=== PATIENT | male | born 1995 | race Caucasian/White ===

== ENCOUNTER 2017-07-02 | Emergency (ER) | payer OTHER ==
[2017-07-02 01:12] LABS: COLOR PALE YELLOW; LEUKOCYTE ESTERASE,URINE NEGATIVE (NEGATIVE); NITRITE,URINE NEGATIVE (NEGATIVE)
--- NOTE | 2017-07-02 02:11 | EDPHY ---
H & P Stated Complaint: says fell yesterday skateboarding on L lower back, urinating blood Time Seen by Provider: 07/02/17 00:23 HPI/ROS: Chief Complaint: Back pain HPI: 22-year-old male fell off his skateboard yesterday, landing on his back on a hand rail. Patient has been having pain in his left back since. This morning he is urine was very dark. He has had persistent pain since. No abdominal pain. No nausea or vomiting. No chest pain or shortness of breath. He did not his head. He had no loss of consciousness. Has not been taking any medication. ROS: 10 point Review of Systems is negative except as noted in the HPI. PMH: None Social History: Occasional smoking, occasional alcohol, occasional marijuana Family History: non-contributory Physical Exam: Gen: Awake, Alert, Airway Intact HEENT: Head: Atraumatic Eyes: PERRLA, EOMI Ears: No hemotympanum Nose: No epistaxis Mouth: Normal dentition, Airway patent Face: No deformity Neck: non-tender, no stepoff, Full ROM without pain Chest: non-tender, lungs CTA Heart: normal heart tones Abd: soft, non-tender, atraumatic Pelvis: non-tender, stable to AP and Lateral compression Back: atraumatic, no midline tenderness Ext: atramatic, full ROM Skin: no rash Neuro: CN II-XII intact, Strength 5/5 in all extremities, sensation intact in all extremities - Medical/Surgical History Hx Asthma: No Hx Chronic Respiratory Disease: No Hx Diabetes: No Hx Cardiac Disease: No Hx Renal Disease: No Hx Cirrhosis: No Hx Alcoholism: No Hx HIV/AIDS: No Hx Splenectomy or Spleen Trauma: No Other PMH: none - Social History Smoking Status: Current some day smoker Constitutional: Initial Vital Signs Temperature (C) 36.6 C 07/02/17 00:03 Heart Rate 89 07/02/17 00:03 Respiratory Rate 18 07/02/17 00:03 Blood Pressure 160/90 H 07/02/17 00:03 O2 Sat (%) 97 07/02/17 00:03 O2 Delivery Mode Room Air Allergies/Adverse Reactions: No Known Allergies Allergy (Unverified 07/02/17 00:07) Home Medications: Medication Instructions Recorded NK [No Known Home Meds] 07/02/17 Medical Decision Making ED Course/Re-evaluation: Patient with back pain status post fall landing on his back last night. He had dark urine at home. He has no hematuria here. He has a completely soft and benign abdomen. Symptoms consistent with musculoskeletal back pain. Will discharge with anti-inflammatories, return for any concerns. - Data Points Laboratory Results: 07/02/17 00:36 Urine Color PALE YELLOW Urine Appearance CLEAR Urine pH 7.0 (5.0-7.5) Ur Specific [place] 1.005 (1.002-1.030) Urine Protein NEGATIVE (NEGATIVE) Urine Ketones NEGATIVE (NEGATIVE) Urine Blood NEGATIVE (NEGATIVE) Urine Nitrate NEGATIVE (NEGATIVE) Urine Bilirubin NEGATIVE (NEGATIVE) Urine Urobilinogen NEGATIVE EU EU (0.2-1.0) Ur Leukocyte Esterase NEGATIVE (NEGATIVE) Urine Glucose NEGATIVE (NEGATIVE) Departure - Departure Disposition: Home, Routine, Self-Care Clinical Impression: Back pain Condition: Good Instructions: Acute Low Back Pain (ED), Lower Back Exercises (ED) Additional Instructions: Take ibuprofen, 600 mg 3 times a day. You may also take acetaminophen 1000 mg every 6 hours. Apply ice for the next 2 days. Return to the emergency depart for increasing pain, fevers, chills, nausea, vomiting, worsening abdominal pain, bright red blood in your urine, or any other concerns. Follow up with [facility] in 2-3 days. Referrals: VAUGHN Laboy,. [Clinic] - As per Instructions
[2017-07-02] MEDS ORDERED: IBUPROFEN 600 MG TAB PO ONE (02:12)
[2017-07-02 02:21] VITALS: BP 146/90; PULSE 82; RESP 16; TEMP 98.2; O2SAT 98
== END 2017-07-02 02:20 | disposition home or self-care (01) ==
DX: S39.92XA Unspecified injury of lower back, initial encounter (principal); F17.200 Nicotine dependence, unspecified, uncomplicated; V00.131A Fall from skateboard, initial encounter; Y99.8 Other external cause status; Y93.51 Activity, roller skating (inline) and skateboarding

== ENCOUNTER → 2019-01-02 | Outpatient (CLI) | payer OTHER | LOC: BMCIMAGING 15:55 | PROVIDERS: ATTEND Emergency Medicine | DX: M25.522 Pain in left elbow (principal); M79.89 Other specified soft tissue disorders ==